=== PATIENT | female | born 1945 | race Caucasian/White ===

== ENCOUNTER 2017-07-08 15:26 | Emergency (ER) | payer MEDICARE ==
[2017-07-08] MEDS ORDERED: ACETAMINOPHEN 500 MG TABLET PO (16:00)
[2017-07-08] MEDS: DIPHTH,PERTUSS(ACELL),TET TOX 0.5 ML DISP.SYRIN. VAX IM (16:40)
[2017-07-08] MEDS: LIDOCAINE WITH 8.4% SOD BICARB 3 ML DISP.SYRIN. INJ (16:41)
== END 2017-07-08 17:33 | disposition home or self-care (01) ==
LOC: ER 15:26
DX: S01.21XA Laceration without foreign body of nose, initial encounter (principal); S09.90XA Unspecified injury of head, initial encounter; Z88.8 Allergy status to other drugs, medicaments and biological substances; W01.0XXA Fall on same level from slipping, tripping and stumbling without subsequent striking against object, initial encounter; Y93.89 Activity, other specified; Y99.8 Other external cause status; Y92.89 Other specified places as the place of occurrence of the external cause
CPT/HCPCS: 12013; 70450; 70486; 72125; 90471; 90715; 99284-25

== ENCOUNTER → 2018-10-25 | Outpatient (CLI) | payer MEDICARE, OTHER ==
[2017-07-08 15:45] VITALS: BP 225/121
--- NOTE | 2018-10-25 10:22 | RAD ---
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 Comparison: None Findings: There is mild motion. There is no evidence of recent infarct or cytotoxic edema. There is mild generalized supratentorial atrophy, ventricular size proportionate to the sulcal spaces. There is cavum septum pellucidum. There is no significant midline shift, intraaxial mass effect, or focal abnormal extra-axial fluid collection. There is multifocal [id number]-[id number] T2 and FLAIR hyperintense signal abnormality of the supratentorial parenchyma bilaterally. There is small old lacunar infarct of the left basal ganglia. There is no significant hemosiderin deposition of the brain parenchyma. There is preservation of the major intracranial flow-voids at the skull base. The mastoid air cells are aerated. The cerebellar tonsils are normal in location. There is no significant abnormality of the pineal gland or pituitary gland. There is mild patchy ethmoid air cell and right sphenoid sinus mucosal thickening, negligible left maxillary sinus mucosal thickening. There is nonspecific increased CSF signal of the optic nerve sheaths bilaterally. There is slightly convex superior margin of pituitary gland although not considered significantly enlarged about 0.6 cm cc. There is preserved marrow signal of the clivus. There is degenerative change of the temporal mandibular joints bilaterally. Impression: 1. There is no evidence of recent infarct or intracranial mass effect. Scattered multifocal T2 and FLAIR hyperintense signal abnormality of the supratentorial parenchyma is nonspecific although probably due to chronic vessel ischemic disease in a patient this age. There is old lacunar infarct of the left basal ganglia. There is generalized supratentorial atrophy. 2. There is degenerative change of the bilateral temporomandibular joints. 3. There is nonspecific somewhat convex superior margin of the pituitary gland although not considered significantly enlarged. Electronically signed by: Holden Mendiola MD (10/25/2018 10:19 AM) [id number]
== END | disposition home or self-care (01) ==
LOC: MRI 08:37
PROVIDERS: ATTEND Family Medicine
DX: I63.81 Other cerebral infarction due to occlusion or stenosis of small artery (principal); M26.69 Other specified disorders of temporomandibular joint; G31.89 Other specified degenerative diseases of nervous system
CPT/HCPCS: 70551

== ENCOUNTER → 2018-11-09 | Outpatient (CLI) | payer MEDICARE ==
[2017-07-08 15:45] VITALS: BP 225/121
--- NOTE | 2018-11-10 15:20 | SLEEP ---
DATE OF STUDY: 11/09/2018 SLEEP STUDY ATTENDING PHYSICIAN: Olena Amaya MD The patient is 73 years old, who weighs 170 pounds with a BMI of 29. The patient underwent sleep study performed at [facility]. This was a diagnostic study. During the night study, the patient spent 422 minutes in bed and slept for 297 minutes with a sleep efficiency of 70%. Sleep latency was 16 minutes with a REM latency of 224 minutes. Overall, sleep architecture showed normal stage 1 and stage 2 sleep, increased slow wave and normal REM sleep. During the night study, the patient had 20 obstructive apneas, 11 mixed apneas, no central apneas and 49 hypopneas. The patient's apnea-hypopnea index was 16 per hour, supine index 44 per hour with a REM index of 18 per hour. EKG monitoring revealed normal sinus rhythm, average heart rate 79 beats per minute, no sustained arrhythmias were observed. No PLMS observed. Nocturnal oximetry study revealed average oxygen saturation 95% with the lowest of 83%. Only 2.2% of time oxygen saturation remained between 80% and 89%. The patient did meet the criteria for CPAP initiation, but it was late in the night and CPAP could not be initiated. IMPRESSION: 1. Moderate sleep apnea-hypopnea syndrome with worsening during supine sleep. 2. No clinically significant nocturnal hypoxia. 3. No clinically significant periodic limb movements. RECOMMENDATIONS: 1. The patient would benefit from treatment of sleep apnea with CPAP titration. 2. Once the patient is optimally treated, then follow up in 4-6 weeks to assess compliance with treatment and to document clinical improvement. 3. Alternate treatment option would include use of an oral appliance as recommended by the dentist. 4. Avoid supine sleep. 5. Caution regarding driving until symptoms of sleep apnea resolve with above recommendation. The patient is clinically symptomatic with an [place] score of 17. 6. Weight loss was strongly advised. ROMEO LEAL MD DR: ESTRELLITA/viral JOB#: [id number] / [id number] OLENA Esquivel MD
== END | disposition home or self-care (01) ==
LOC: RT 18:51
PROVIDERS: ATTEND Family Medicine
DX: G47.33 Obstructive sleep apnea (adult) (pediatric) (principal); R53.83 Other fatigue
CPT/HCPCS: 95810

== ENCOUNTER → 2019-06-03 | Day surgery (SDC) | payer MEDICARE ==
[~2019-06-03] MED LIST: HYDR12.575 PO; IV RINGERS,LACTATED 1000ML 1,000 ML IV SCH; LIDOCAINE 2% PF 5 ML VIAL. ONE; LOSA100T14 PO; PROPOFOL 20 ML IV ONE
[2019-06-03 10:00] VITALS: BP 168/98
== END | disposition home or self-care (01) ==
LOC: ENDOS 07:22
PROVIDERS: ATTEND Internal Medicine Gastroenterology
DX: K62.5 Hemorrhage of anus and rectum (principal); K64.0 First degree hemorrhoids; K57.30 Diverticulosis of large intestine without perforation or abscess without bleeding; K63.89 Other specified diseases of intestine; F41.9 Anxiety disorder, unspecified; M19.90 Unspecified osteoarthritis, unspecified site; F32.9 Major depressive disorder, single episode, unspecified; I10 Essential (primary) hypertension; E03.9 Hypothyroidism, unspecified; G47.33 Obstructive sleep apnea (adult) (pediatric); Z82.3 Family history of stroke; Z83.3 Family history of diabetes mellitus; Z88.1 Allergy status to other antibiotic agents; Z91.040 Latex allergy status; Z91.018 Allergy to other foods; Z87.891 Personal history of nicotine dependence; Z79.899 Other long term (current) drug therapy
CPT/HCPCS: 45378; J2001; J2704

== ENCOUNTER → 2020-09-27 | Outpatient (CLI) | payer MEDICARE ==
[2019-06-03 10:00] VITALS: BP 168/98
[~2020-09-27] MED LIST changes: +GADOTERATE 7.5 MMOL/15ML VIAL. IVP ONE; -IV RINGERS,LACTATED 1000ML 1,000 ML IV SCH; -LIDOCAINE 2% PF 5 ML VIAL. ONE; -PROPOFOL 20 ML IV ONE
[2020-09-27 14:03] LABS: CREATININE 1.2 mg/dL (0.6-1.0); GFR 44.2
--- NOTE | 2020-09-27 16:39 | RAD ---
EXAM: MRI BRAIN AND ORBITS WITH AND WITHOUT CONTRAST. 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 TECHNIQUE: Magnetic resonance images of the brain and orbits were obtained before and after the intra venous administration of 15 mL Clariscan. COMPARISON: 10/25/2018. FINDINGS: The optic nerves are symmetric in size and signal. There is no abnormal enhancement. There are changes of right cataract surgery. The globes are otherwise unremarkable. There is no orbital mas s or inflammation. There is no extraocular muscle enlargement. The pituitary gland has a concave superior border, atypical in a patient of this age. There is no mas s effect on the optic chiasm. The infundibulum is mildly deviated to the right. No pituitary mass is appreciable by nondilated technique. The cavernous internal carotid arteries are tortuous on the left greater than right, and it is possible that the sellar findings may be the result of mild mass effec t by the left internal carotid artery. Other than internal carotid artery tortuosity, the cavernous s inuses are unremarkable. The basilar artery is also tortuous and extends toward the right. There are no enhancing lesions. There is no diffusion restriction. Foci of white matter T2/FLAIR hype rintensity are nonspecific but are consistent with moderate chronic microangiopathic change. Prominen ce of the lateral ventricles and hemispheric sulci indicates mild atrophy. Note is made of a cavum ve rgae. There is mucosal thickening within the right aspect of the sphenoid sinus. The temporal bones are unr emarkable. The calvarium demonstrates no suspicious lesions. IMPRESSION: 1. The internal carotid arteries are tortuous bilaterally, resulting in mass effect in the cavernous sinuses on the left greater than right. The basilar artery is also tortuous, extending to the right o f midline. These could potentially compress the right 6th nerve. Ongoing follow-up is recommended. 2. The pituitary gland has a convex superior border. It is also possible but this may reflect mass ef fect from internal carotid artery tortuosity. A dedicated dynamic pituitary protocol study could be p erformed if there is persistent concern for pituitary microadenoma. 3. Mild atrophy and moderate chronic microangiopathic white matter change. Electronically signed by: Leonor Eisenberg MD (09/27/2020 4:36 PM) [facility]
== END ==
LOC: MRI 13:18
PROVIDERS: ATTEND Family Medicine
DX: G31.89 Other specified degenerative diseases of nervous system (principal); J34.89 Other specified disorders of nose and nasal sinuses; I77.1 Stricture of artery; H53.2 Diplopia; Z98.890 Other specified postprocedural states
CPT/HCPCS: 36415; 70543; 70553; 82565; A9575